=== PATIENT | female | born 1975 | race Two or more races ===

== ENCOUNTER 2016-12-19 21:19 | Emergency (ER) | payer OTHER ==
[2016-12-19] MEDS ORDERED: Acetaminophen TAB* 325 MG PO ONE (22:00)
--- NOTE | 2016-12-19 22:45 | RAD ---
INDICATION: Mid posterior RIGHT calf pain since Saturday. COMPARISON: No relevant prior exams available on the [facility] [place] PACS for comparison. TECHNIQUE: Chung scale, color Doppler, and spectral analysis of the deep veins of the RIGHT lower extremity. Vessel compression, phasicity, and augmentation assessed. REPORT: The RIGHT common femoral, great saphenous, profunda femoral, femoral, popliteal, peroneal, and one of the posterior tibial veins are patent. The remaining posterior tibial vein is remarkable for occlusive thrombosis. Patency of the LEFT common femoral vein documented. IMPRESSION: 1. Negative for RIGHT lower extremity femoral or popliteal vein thrombosis. 2. Occlusive infrageniculate RIGHT lower extremity deep venous thrombosis involving one of the paired posterior tibial veins.
--- NOTE | 2016-12-19 23:51 | ED ---
Lower Extremity - HPI Summary HPI Summary: Pt here w/ Rt calf pain x 2 days. Feels like she's about to get a "Will Horse " but it never happens. Worse w/ flexion/extension of ankle on the side. Better w/ elevation. Has not tried anything yet for pain. Denies injury here or to leg in general - no pain in joints. Denies fever, chills, N/V/D, chest pain, SOB, back pain, hemoptysis. Smokes. Fam h/o clotting issues - mom takes daily ASA to prevent future issues. This pt takes aleve for dysmenorrhea but otherwise is not aware of clotting d/o and not taking prophylactic medication at this time. Denies hormone use, h/o cancer, h/o clot, recent travel/trauma. - History of Current Complaint Chief Complaint: EDExtremityLower Stated Complaint: RIGHT LEG PAIN Time Seen by Provider: 12/19/16 21:48 Hx Obtained From: Patient Pain Intensity: 5 - Allergies/Home Medications Allergies/Adverse Reactions: Allergies Allergy/AdvReac Type Severity Reaction Status Date / Time Penicillins [PCN] Allergy Anaphylatic Verified 12/19/16 21:24 Shock PMH/Surg Hx/FS Hx/Imm Hx Previously Healthy: Yes Endocrine/Hematology History: Denies: Hx Anticoagulant Therapy, Hx Blood Disorders, Hx Coagulopothy Cardiovascular History: Denies: Hx Deep Vein Thrombosis Infectious Disease History: No Infectious Disease History: Denies: Traveled Outside the [place] in Last 30 Days - Family History Known Family History: Positive: Other - coagulopathy - Social History Occupation: Employed Full-time - [employer] Lives: With Family Alcohol Use: Occasionally Hx Substance Use: No Substance Use Type: Reports: None Hx Tobacco Use: Yes Smoking Status (MU): Current Every Day Smoker Review of Systems Constitutional: Negative Negative: Fever, Chills, Fatigue Cardiovascular: Negative Negative: Palpitations, Chest Pain Respiratory: Negative Negative: Shortness Of Breath, Cough Positive: no symptoms reported Musculoskeletal: Other - see HPI Skin: Negative Negative: Rash, Bruising Neurological: Negative Negative: Weakness, Paresthesia, Numbness Psychological: Normal All Other Systems Reviewed And Are Negative: Yes Physical Exam Triage Information Reviewed: Yes Vital Signs On Initial Exam: Initial Vitals Temp Pulse Resp BP Pulse Ox 97.8 F 82 18 130/81 98 12/19/16 21:23 12/19/16 21:23 12/19/16 21:23 12/19/16 21:23 12/19/16 21:23 Vital Signs Reviewed: Yes Appearance: Positive: Well-Appearing, No Pain Distress, Well-Nourished Skin: Positive: Warm, Dry - no erythema, no ecchymosis, no vesicles over affected area Head/Face: Positive: Normal Head/Face Inspection Eyes: Positive: Normal, EOMI ENT: Positive: Hearing grossly normal Respiratory/Lung Sounds: Positive: Breath Sounds Present Cardiovascular: Positive: Pulses are Symmetrical in both Upper and Lower Extremities. Negative: Leg Edema Left, Leg Edema Right - + Atul's Musculoskeletal: Positive: Strength/ROM Intact - Rt calf pain worse w/ ankle dorsiflexion/plantar flexion Neurological: Positive: Normal, Sensory/Motor Intact, Alert, Oriented to Person Place, Time, CN Intact II-III Psychiatric: Positive: Normal Diagnostics - Vital Signs Vital Signs Temp Pulse Resp BP Pulse Ox 12/19/16 21:23 97.8 F 82 18 130/81 98 - Laboratory Lab Statement: Any lab studies that have been ordered have been reviewed, and results considered in the medical decision making process. Lower Extremity Course/Dx - Diagnoses Provider Diagnoses: Right leg DVT Discharge - Discharge Plan Condition: Stable Disposition: HOME Patient Education Materials: Deep Venous Thrombosis (ED), Safe Use of Anticoagulants (ED) Referrals: [facility] REFERRAL [Outside] Additional Instructions: You have a clot on your right calf region - this is called a deep vein thrombosis or "DVT". It is advised that you take your blood thinning medications as directed and follow-up with a PCP in 1-2 weeks for recheck. Call tomorrow to re-establish with your PCP. If he/she is not taking new patients, please call referral line to establish with a new PCP. For pain control, you may try rest, heat, and acetaminophen. Do NOT take any NSAID's (ie. ibuprofen, advil, aleve, naproxen, aspirin) while taking blood thinning medication. Your PCP will let you know when it is safe to stop the medication and when you may return to NSAID use. *If you develop excessive bruising or abnormal bleeding while taking this medication, return to the ED
[2016-12-20 00:04] LABS: BUN/Creatinine Ratio 14.9 (8-20); Calcium 8.9 mg/dL (8.6-10.3); EGFR African American 110.2 (>60); EGFR Non-African American 85.7 (>60); Potassium 3.6 mmol/L (3.5-5.0)
[2016-12-20 00:08] LABS: Add Diff/Slide Review? Slide Review Added; Comments Flag Yes; Hematocrit 38 % (35-47); Hemoglobin 12.7 g/dl (12.0-16.0); Mean Corpuscular HGB Conc 34 g/dl (31-36); Mean Corpuscular Hemoglobin 31 pg (27-31); Mean Corpuscular Volume 92 fL (80-97); Red Blood Count 4.08 10^6/ul (4.0-5.4); Red Cell Distribution Width 14 % (10.5-15); White Blood Count 8.8 10^3/ul (3.5-10.8)
[2016-12-20 01:21] LABS: Platelet Count, Citrated 175 10^3/ul (150-450)
[2016-12-20] MEDS ORDERED: Apixaban* 5 MG TAB PO ONE (02:21)
[2016-12-20 03:12] VITALS: BP 111/60
== END 2016-12-20 03:10 | disposition home or self-care (01) ==
LOC: ED 21:19
DX: I82.4Z1 Acute embolism and thrombosis of unspecified deep veins of right distal lower extremity (principal); F17.210 Nicotine dependence, cigarettes, uncomplicated
CPT/HCPCS: 36415; 80048; 85025; 85049; 85610; 99283; A9270-GY

== ENCOUNTER 2018-03-17 10:14 | Emergency (ER) | payer BC ==
--- NOTE | 2018-03-17 10:36 | ED ---
Lower Extremity - HPI Summary HPI Summary: This pt is a 43 y/o female presenting to [facility] c/o left calf pain x1 week. Pt reports she has a hx of DVT last year for which she had to take anticoagulants. She states she was on anticoagulants for about 4 months. She notes that she began to have sree horse on her left calf on 03/09/18. Pt reports her pain decreased and almost totally resolved until 3 days ago. She notes her pain on her left calf is similar to when she had a DVT. Denies chest pain, SOB, cough, fever, chills. Denies long distance travel or car rides. Pt has been taking aspirin for the pain without relief. Pt still has menstrual cycles. - History of Current Complaint Chief Complaint: EDExtremityLower Stated Complaint: LT LEG PAIN Time Seen by Provider: 03/17/18 10:23 Hx Obtained From: Patient Mechanism Of Injury: Other - no trauma Onset of Pain: Days Onset/Duration: Still Present Severity Currently: Severe Pain Intensity: 8 Pain Scale Used: 0-10 Numeric Timing: Lasting Days Location: Is Discrete @ - left calf Associated Signs And Symptoms: Negative: Fever, Other - chest pain, SOB, cough Aggravating Factor(s): Nothing Alleviating Factor(s): Nothing Able to Bear Weight: Yes Related History: Other - similar pain to past DVT - Allergies/Home Medications Allergies/Adverse Reactions: Allergies Allergy/AdvReac Type Severity Reaction Status Date / Time ampicillin Allergy Swelling Verified 03/17/18 10:21 Of Face,Lips,& Throat Penicillins Allergy Swelling Verified 03/17/18 10:21 Of Face,Lips,& Throat PMH/Surg Hx/FS Hx/Imm Hx Endocrine/Hematology History: Denies: Hx Anticoagulant Therapy, Hx Blood Disorders, Hx Diabetes Cardiovascular History: Reports: Hx Deep Vein Thrombosis Denies: Hx Hypertension - Cancer History Hx Chemotherapy: No Hx Radiation Therapy: No Infectious Disease History: No Infectious Disease History: Denies: Traveled Outside the [place] in Last 30 Days - Family History Known Family History: Positive: Other - coagulopathy - Social History Alcohol Use: Occasionally Hx Substance Use: No Substance Use Type: Reports: None Hx Tobacco Use: Yes Smoking Status (MU): Current Every Day Smoker Review of Systems Negative: Fever, Chills Negative: Chest Pain Negative: Shortness Of Breath, Cough Musculoskeletal: Other - left calf pain All Other Systems Reviewed And Are Negative: Yes Physical Exam - Summary Physical Exam Summary: VITAL SIGNS: Reviewed. GENERAL: Patient is a well-developed and nourished female who is lying comfortable in the stretcher. Patient is not in any acute respiratory distress. HEAD AND FACE: No signs of trauma. No ecchymosis, hematomas or skull depressions. No sinus tenderness. EYES: PERRLA, EOMI x 2, No injected conjunctiva, no nystagmus. EARS: Hearing grossly intact. Ear canals and tympanic membranes are within normal limits. MOUTH: Oropharynx within normal limits. NECK: Supple, trachea is midline, no adenopathy, no JVD, no carotid bruit, no c- spine tenderness, neck with full ROM. CHEST: Symmetric, no tenderness at palpation LUNGS: Clear to auscultation bilaterally. No wheezing or crackles. CVS: Regular rate and rhythm, S1 and S2 present, no murmurs or gallops appreciated. ABDOMEN: Soft, non-tender. No signs of distention. No rebound, no guarding, and no masses palpated. Bowel sounds are normal. EXTREMITIES: FROM in all major joints. Positive left calf tenderness. Positive García sign. NEURO: Alert and oriented x 3. No acute neurological deficits. Speech is normal and follows commands. SKIN: Dry and warm Triage Information Reviewed: Yes Vital Signs On Initial Exam: Initial Vitals Temp Pulse Resp BP Pulse Ox 97.4 F 83 16 130/63 98 03/17/18 10:15 03/17/18 10:15 03/17/18 10:15 03/17/18 10:15 03/17/18 10:15 Vital Signs Reviewed: Yes Diagnostics - Vital Signs Vital Signs Temp Pulse Resp BP Pulse Ox 03/17/18 10:15 97.4 F 83 16 130/63 98 - Laboratory Result Diagrams: 03/17/18 10:39 03/17/18 10:39 Lab Statement: Any lab studies that have been ordered have been reviewed, and results considered in the medical decision making process. - Additional Comments Diagnostic Additional Comments: Venous Doppler Study, Left Lower Extremity (as read by radiologist) IMPRESSION: 1. Deep venous thrombosis in one posterior tibial and one anterior tibial vein. 2. Popliteal fossa cyst. Dr. Tolbert has reviewed this report. Re-Evaluation - Re-Evaluation First Eval Re-Evaluation Time: 12:33 Comment: Reviewed venous doppler study results with the pt. Lower Extremity Course/Dx - Course Assessment/Plan: This patient is a 43-year-old female who presents to the emergency department with a chief complaint of having left lower extremity pain. Patient has past medical history for a DVT. Blood tests without any significant abnormality except for glucose of 112. Left lower extremity ultrasound impression: Deep venous compresses in posterior tibial and on anterior tibial veins. Popliteal fossa cyst. Because of the positive findings of a DVT the patient is to be placed on blood thinners. However the patient reports that she has heavy menstrual cycles when she has the full dosage of 10 mg twice a day. Therefore, I will give patient a prescription for Eliquis 5 mg twice a day and a follow-up with her primary care physician in the next 2 days. Patient agrees with the plan. The patient is discharged home with follow-up with PCP. I discussed all the findings and test results with the patient. Patient was instructed to return to the emergency room immediately if any of the symptoms return or worsens. Plan of care was discussed with the patient and understands and agrees. All questions were answered at patient satisfaction. There were no further complaints or concerns. Lung exam before discharge: CTA B /L. Good air exchange. No wheezing or crackles heard. CVS: S1 and S2 present. No murmurs appreciated. Patient is alert and oriented x 3. Patient is hemodynamically stable. Patient will be discharged home with follow up from PCP in the next 2-3 days. - Diagnoses Differential Diagnosis/HQI/PQRI: Positive: Bursitis, Cellulitis, Contusion, Sprain, Strain Provider Diagnoses: DVT (deep venous thrombosis) Discharge - Sign-Out/Discharge Documenting (check all that apply): Patient Departure - Discharge home - Discharge Plan Condition: Improved Disposition: HOME Prescriptions: Apixaban* [Eliquis*] 5 mg PO BID #40 tab Patient Education Materials: Deep Vein Thrombosis (ED) Referrals: Jahaira Chavis MD [Primary Care Provider] - Additional Instructions: FOLLOW UP WITH YOUR PRIMARY CARE PROVIDER WITHIN ONE WEEK FOR HIGH BLOOD PRESSURE NOTED TODAY. RETURN TO THE ED FOR ANY NEW OR WORSENING SYMPTOMS. - Billing Disposition and Condition Condition: IMPROVED Disposition: Home - Attestation Statements Document Initiated by Oumaribyoselin: Yes Documenting Scribe: Judy Yang Provider For Whom David is Documenting (Include Credential): Stef Tolbert MD Scribe Attestation: I, Judy Yang, scribed for Stef Tolbert MD on 03/19/18 at 0742. Scribe Documentation Reviewed: Yes Provider Attestation: The documentation as recorded by the scribe, Judy Yang accurately reflects the service I personally performed and the decisions made by me, Stef Tolbert MD
--- OUTSIDE RECORDS SUMMARY | 2018-03-17 10:40 | XMS REPORT ---
:1975 External Reference #:[id number] Author Organization [facility] Address [address] [place] [address] Phone [phone] Care Team Providers Name Role Phone Jahaira Abrams Care Team Information Block And Case Maker Unavailable Jahaira Abrams Primary Care Physician Unavailable Payers Type Date Identification Numbers Payment Provider Subscriber Commercial Policy Number: [id number] Out Of Area [facility] Rebekah Cardenas PayID: [id number] [address] [address] [place] [address] Problems Description No Information Family History Date Family Member(s) Problem(s) Comments General No family hx SD. No lung/Breast Ca. No cervical/ovarian/uterin CAMaternal aunt dx'd colon ca age 67.MGF + colon CA. Father age 57 d/t kidney failure. Mother DM,HTN. stroke 2010 - lost peripheral vision L eye, seizures. pacemaker. First Daughter healthy. Second Daughter hearing loss, wears two hearing aides. First Brother healthy. Maternal Grandmother due to Embolism () Social History Type Date Description Comments Education Highest level of education completed is a bachelor's degree Congolese. Marital Status Patient is single Living Situation Lives with daughters, and mother. Occupation [place] Cigarette Use Former Cigarette Smoker quit 1992 ETOH Use Rare Smoking Patient is a current smoker, quit after DVT - smoking smokes every day 1 pack per week quit when she was , Exercise Type/Frequency Exercises regularly Current Seat Belt/Car Seat Always uses a seat belt Sexual Hx Not currently in a relationship. Allergies, Adverse Reactions, Alerts Date Description Reaction Status Severity Comments 07/26/2009 Penicillin active 07/26/2009 Ampicillin active Medications Medication Date Status Form Strength Qnty SIG Indications Ordering Provider Compression 01/02/ Active OnePair knee high, I82.401 [employer] 2017 14mm dx: Diane, i82.401 [facility] Eliquis 12/20/ Hx Tablets 5mg 60tabs 1 tablet I82.401 [facility] 2016 - by mouth Diane, 03/26/ twice a [facility] 2017 day No Active 08/01/ Hx Unknown Medications 2015 - 2016 No Active 07/11/ Hx Unknown Medications 2015 - 2015 Azithromycin 07/11/ Hx Tablets 250mg 12tabs take 2 J06.9 [facility] 2015 - tablets by Diane, 08/01/ mouth x 3d [facility] 2015 then take 1 tablet daily for next 6 days Cheratussin ac 07/11/ Hx Syrup 100-10mg/ 4oz 1-2 J06.9 [facility] 2015 - 5ML teaspoons Diane, 08/01/ every 4-6 [facility] 2015 hour as needed for cough Note No Work 07/11/ Hx Rebekah J06.9 [facility] 2015 - was seen Diane 08/01/ by [facility] 2015 today has not been able to work since and may not return to work until Medrol (Jimmy) 01/12/ Hx Tablets 4mg 1tabs as 842.00 Jesus 2015 - directed Zachary 07/11/ M.DVishal 2015 Azithromycin 10/27/ Hx Tablets 250mg 6tabs 2 by mouth 486 Al[facility]rac[facility] 2015 - every day Becca, 11/01/ x1 then 1 Afnp-C 2015 by mouth every day x 4 more days Cheratussin ac 10/27/ Hx Syrup 100-10mg/ 4oz 1-2 465.9 Altagracia 2014 - 5ML teaspoons [facility], 11/06/ every 4-6 Afnp-C 2014 hour as needed for cough Hydrocodone/Wayne 09/22/ Hx Tablets 5-325mg 40tabs 1 po qid Jahaira Nelson taminophen 2013 - pudt take Palmira, 10/27/ care to M.DVishal 2015 keep bowels moving daily ok to take ibuprofen with this, not tylenol/ac etaminophe n No Active 09/18/ Hx Unknown Medications 2013 - 2013 Vitamin D 09/18/ Hx Capsules [id number] 10caps 1 po Jahaira L. 2014 - weekly x Palmira, . M.D. 2016 Metronidazole 06/15/ Hx Tablets 500mg 20tabs 1po bid x 616.10 Jahaira Leslie 2012 - 10 days Palmira, M.D. 2013 Vitamin D 06/05/ Hx Capsules 77837Axid 10caps 1 po Jahaira Nelson 2012 - weekly x Palmira, . M.D. 2013 No Active 05/04/ Hx Unknown Medications 2012 - 2012 Doxycycline 10/06/ Hx Capsules 100mg 20caps 1 po bid Aleksander Eddy 2010 - Mid, M.D. 2012 Immunizations CPT Code Status Date Vaccine Lot # [id number] Given 05/04/2013 Tdap Tetanus, W Pertussis [id number] Vital Signs Date Vital Result Comment 03/10/2018 BP Systolic 132 mmHg BP Diastolic 86 mmHg Heart Rate 72 /min Body Temperature 98.2 F Respiratory Rate 16 /min Height 64 inches 5'4" measured Weight 213.50 lb BMI (Body Mass Index) 36.6 kg/m2 04/26/2017 BP Systolic 120 mmHg BP Diastolic 80 mmHg Heart Rate 72 /min Body Temperature 98.0 F Respiratory Rate 18 /min Height 64 inches 5'4" measured Weight 204.00 lb BMI (Body Mass Index) 35.0 kg/m2 01/23/2017 BP Systolic 118 mmHg BP Diastolic 80 mmHg Heart Rate 68 /min Body Temperature 98.6 F Height 64 inches 5'4" measured Weight 215.00 lb BMI (Body Mass Index) 36.9 kg/m2 12/24/2016 BP Systolic 116 mmHg BP Diastolic 60 mmHg Heart Rate 78 /min Body Temperature 98.4 F Respiratory Rate 16 /min Height 64 inches 5'4" measured Weight 223.00 lb BMI (Body Mass Index) 38.3 kg/m2 08/01/2015 BP Systolic 118 mmHg BP Diastolic 64 mmHg Heart Rate 72 /min Body Temperature 98.1 F Respiratory Rate 16 /min Height 64 inches 5'4" measured Weight 209.38 lb BMI (Body Mass Index) 35.9 kg/m2 07/11/2015 BP Systolic 120 mmHg BP Diastolic 80 mmHg Heart Rate 80 /min Body Temperature 98.1 F Respiratory Rate 18 /min Height 64 inches 5'4" measured Weight 206.00 lb BMI (Body Mass Index) 35.4 kg/m2 01/12/2015 BP Systolic 112 mmHg BP Diastolic 70 mmHg Heart Rate 72 /min Body Temperature 98.2 F Respiratory Rate 16 /min Height 64 inches 5'4" measured Weight 193.00 lb BMI (Body Mass Index) 33.1 kg/m2 10/27/2014 BP Systolic 120 mmHg BP Diastolic 70 mmHg Heart Rate 72 /min Body Temperature 98.7 F Respiratory Rate 18 /min Height 64 inches 5'4" measured Weight 201.00 lb BMI (Body Mass Index) 34.5 kg/m2 09/18/2013 BP Systolic 110 mmHg BP Diastolic 72 mmHg Heart Rate 78 /min Body Temperature 97.2 F Height 64 inches 5'4" measured Weight 223.38 lb BMI (Body Mass Index) 38.3 kg/m2 06/15/2013 BP Systolic 122 mmHg BP Diastolic 74 mmHg Heart Rate 72 /min Body Temperature 98.0 F Respiratory Rate 16 /min Height 64 inches 5'4" measured Weight 221.12 lb BMI (Body Mass Index) 38.0 kg/m2 05/04/2013 BP Systolic 118 mmHg BP Diastolic 74 mmHg Heart Rate 78 /min Body Temperature 97.9 F Respiratory Rate 16 /min Height 64 inches 5'4" measured Weight 223.00 lb BMI (Body Mass Index) 38.3 kg/m2 Right Visual Acuity Distance 20/30 Left Visual Acuity Distance 20/25 10/06/2010 BP Systolic 118 mmHg BP Diastolic 60 mmHg Heart Rate 72 /min Body Temperature 98.3 F Height 64 inches 5'4" Weight 207.00 lb BMI (Body Mass Index) 35.5 kg/m2 08/23/2009 BP Systolic 98 mmHg BP Diastolic 60 mmHg Heart Rate 78 /min Body Temperature 97.4 F Weight 204.00 lb 08/08/2009 BP Systolic 110 mmHg BP Diastolic 80 mmHg Heart Rate 64 /min Body Temperature 98.3 F Weight 211.00 lb 07/26/2009 BP Systolic 104 mmHg BP Diastolic 62 mmHg Heart Rate 76 /min Body Temperature 99.4 F Height 64 inches 5'4" Weight 205.00 lb BMI (Body Mass Index) 35.2 kg/m2 Results Test Date Test Result H/L Range Note Laboratory test finding 09/18/2013 Glucose, Serum 80 mg/dL 70-105 (Fma/CMC/CTX) Hemoglobin A1c (Fma/CMC,CX) 6.1 % High 4.1-5.7 Laboratory test finding 09/18/2013 Vitamin D25 19 Low 30-100 1 Comprehensive Metabolic Prof 06/01/2013 Albumin 4.5 g/dL 3.8-5.5 Alk. Phos. 46 U/L 30-110 Alt (SGPT) 19 U/L 7-35 Ast (Sgot) 15 U/L 5-34 BUN 15 mg/dL 6-26 Calcium 9.8 mg/dL 8.6-10.2 Chloride 105 mEq/L 94-112 Creatinine 0.9 mg/dL 0.6-1.4 Carbon Dioxide 23 mEq/L 21-32 Glucose 119 mg/dL High 70-105 2 Sodium 144 mEq/L 134-149 Total Bilirubin 0.5 mg/dL 0.2-1.3 Total Protein 6.9 g/dL 6.3-8.1 Potassium 4.6 mEq/L 3.6-5.5 Globulin 2.4 g/dL 2.0-4.8 A/G Ratio 1.9 Calc 0.6-2.3 BUN/Creat Ratio 16.3 Calc 8.0-36.0 Lipid Profile 06/01/2013 Cholesterol 198 mg/dL 120-200 HDL 52 mg/dL 30-85 Triglycerides 70 mg/dL 30-200 HDL Risk Factor 3.8 CALC 0.0-4.4 LDL (Calculated) 132 CALC High 0-129 VLDL (Calculated) 14 mg/dL 0-50 Laboratory test finding 06/01/2013 TSH 4.09 mIU/L 0.50-6.00 Ua - Micro (Fma) 06/01/2013 Appearance cloudy Color yellow Glucose neg Bilirubin neg Ketones neg SP Grav >1.030 Blood neg PH 5.5 Protein neg Urobil 0.2 Nitrite neg Leukocytes (Fma/CMC/Centrex) large Hyaline - /Lpf Granular - /Lpf WBC (Fma,Centrex) 20-30 RBC 0-4 Mucus - /Lpf Epith few /Lpf Bacteria 1+ /Hpf Amorphous - /Lpf Crystals, Fluid (Fma/CMC/CTX) - Z#Comments - Laboratory test finding 06/01/2013 Vitamin D, 25 Oh 6.8 ng/mL Low 30.0- 100.0 3 Urine Culture No growth. Laboratory test finding 05/05/2013 Thin Prep W/HPV SEE NOTE 4 Laboratory test finding 08/23/2009 Thin Prep SEE NOTE 5 W/HPV(Lsil/GENIA/Asc) CBC (Fma) 08/23/2009 WBC 5.2 3.6-9.6 RBC 4.02 3.90-5.70 Hemoglobin (Fma/CMC/CTX) 11.5 g/dL Low 12.1 - 17.2 Hematocrit (Fma/CMC/CTX) 37.3 % 36.1 - 50.3 Mean Corpuscular Vol 92.8 82.2-97.4 Mean Corpuscular Hemaglobin 28.6 27.6-33.3 Mean Corpuscular Hemo Concen 30.8 Low 33.0-36.0 Platelets 266 10^3/ul 150-400 Lymph% 26.7 20.5-51.1 Mixed% 15.7 Neutrophils % 57.6 RDW 13.7 11.6-13.7 Mean Platelet Volume 9.4 7.4-10.4 Comprehensive Metabolic Prof 08/03/2009 Albumin 4.2 g/dL 3.8-5.5 Alk. Phos. 44 U/L 30-110 Alt (SGPT) 15 U/L 7-35 Ast (Sgot) 19 U/L 5-34 BUN 17 mg/dL 6-26 Calcium 9.9 mg/dL 8.6-10.2 Chloride 104 mEq/L 94-112 Creatinine 1.0 mg/dL 0.6-1.4 Carbon Dioxide 25 mEq/L 21-32 Glucose 92 mg/dL 70-105 Sodium 141 mEq/L 134-149 Total Bilirubin 0.4 mg/dL 0.2-1.3 Total Protein 6.9 g/dL 6.3-8.1 Potassium 4.2 mEq/L 3.6-5.5 Globulin 2.7 g/dL 2.0-4.8 A/G Ratio 1.6 Calc 0.6-2.2 BUN/Creat Ratio 17.7 Calc 8.0-36.0 Lipid Profile 08/03/2009 Cholesterol 171 mg/dL 120-200 HDL 53 mg/dL 30-85 Triglycerides 48 mg/dL 30-200 HDL Risk Factor 3.2 CALC Low 4.2-7.0 LDL (Calculated) 108 CALC 0-129 VLDL (Calculated) 10 mg/dL 0-50 Laboratory test finding 08/03/2009 TSH 2.02 mIU/L 0.50-6.00 CBC (Fma) 08/03/2009 WBC 5.4 3.6-9.6 RBC 4.02 3.90-5.70 Hemoglobin (Fma/CMC/CTX) 11.6 g/dL Low 12.1 - 17.2 Hematocrit (Fma/CMC/CTX) 37.3 % 36.1 - 50.3 Mean Corpuscular Vol 92.8 82.2-97.4 Mean Corpuscular Hemaglobin 28.9 27.6-33.3 Mean Corpuscular Hemo Concen 31.1 Low 33.0-36.0 Platelets 120 10^3/ul Low 150-400 6 Lymph% 33.3 20.5-51.1 Mixed% 10.4 Neutrophils % 56.3 RDW 13.9 High 11.6-13.7 Mean Platelet Volume ----- Low 7.4-10.4 Laboratory test finding 08/03/2009 Vitamin D, 25 Oh 13.8 ng/mL Low 32.0- 100.0 7 1 FASTING 2 result mario'd 3 Vitamin D deficiency has been defined by the [place] [employer] and an Endocrine Society practice guideline as a level of serum 25-OH vitamin D less than 20 ng/mL (1,2). The Endocrine Society went on to further define vitamin D insufficiency as a level between 21 and 29 ng/mL (2). 1. IOM ([place] [employer]). 2010. Dietary reference intakes for calcium and D. [place]: The National Academies Press. 2. Miryam MF, Jadon NC, [place] STERLING, et al. Evaluation, treatment, and prevention of vitamin D deficiency: an Endocrine Society clinical practice guideline. JCEM. 2010; 96(7):1911-30. 4 [employer] DEPARTMENT OF PATHOLOGY or Extension 1906 COMBINED HPV / COOKER TENDER CYTOLOGY REPORT Patient: REBEKAH CARDENAS : 1975 AGE: 38 Y SEX: F Acct: [id number] Procedure Date: 05/04/2013 Date Received: 05/06/2013 Requesting Provider: JAHAIRA ABRAMS MD Location: [facility] [place] [id number] Requisition #: [id number] CYTOLOGIC INTERPRETATION: SPECIMEN ADEQUACY SATISFACTORY FOR EVALUATION, ENDOCERVICAL TRANSFORMATION ZONE COMPONENT PRESENT GENERAL CATEGORIZATION NEGATIVE FOR INTRAEPITHELIAL LESIONS OR MALIGNANCY INTERPRETATION/ RESULT TRICHOMONAS VAGINALIS, RECOMMENDATIONS Repeat pap after treatment of infection. See Related Reference Test Result below. Refer to the corresponding web sites for 2012 updated general recommendation guidelines of U.S. preventive service task force for cervical cancer screening, and www.asccp.org//klvlzcfbk7279. COMMENTS Thin Prep Pap tests are examined with an FDA approved location-guidance system. RELATED REFERENCE TEST RESULT: HPV: "HIGH RISK" Source: CERVICAL Result: NEGATIVE Test Method: HC2 Performing Location: METHODOLOGY: HPV high risk is performed with the FDA approved Digene HC2 method whenever the specimen is cellular enough and the quantity of sample remaining in the vial after Thin Prep PAP slide preparation equals or greater than 4 ml. In cases of smaller sample (0.5 to 3.9 ml) the HPV high risk testing will be performed with Low Volume rfx. ( RN) Digene Hybrid Capture (HC2). FDA approved and detects 13 "high risk" HPV types (16/18/31/33/35/39/45/51/52/56/58/59/68) without differentiation. (02 BN) Low Volume rfx detects fourteen "high risk" HPV types (16/18/31/33/35/39/45/51/52/56/58/59/66/68) without differentiation. PATIENT DATA: SPECIMEN SUBMITTED: * * (HPVR) THIN PREP W/HPV * * CERVICAL/ENDOCERVICAL RELEVANT HISTORY: LMP: 04/12/2013 Prev.normal: 2009 Comment: TUBAL 2004 ADDITIONAL COPIES SENT TO: Screened/Rescreened Electronically Signed Sign Out Date/Time: by: by: [facility] CJS3 ABILIO JIMENEZ(ASCP) 05/11/2013 10:16 Note: The Pap smear is a screening test designed to aid in the detection of premalignant and malignant conditions of the uterine cervix. It is not a diagnostic procedure and should not be used as the sole means of detecting cervical cancer. Both false-positive and false-negative reports do occur. 00 UA Pap Smear performed at [facility] [place]: [place], [address] [place] [id number] 01 associate faculty [facility] Dir: Ronny Piña MD, [address] [place] [phone] 02 [facility] [place] Dir: Edmundo Mendez MD, [address] [place] [phone] For inquiries regarding HPV test results, the physician may contact [facility]: [phone] . 5 [employer] DEPARTMENT OF PATHOLOGY or Extension 1806 COOKER TENDER CYTOLOGY REPORT PATIENT: REBEKAH CARDENAS : 1975 AGE: 34 Y SEX: F ACCT: [id number] PROCEDURE DATE: 08/23/2009 DATE RECEIVED: 08/24/2009 REQUESTING PHYSICIAN: JAHAIRA ABRAMS MD LOCATION: [facility] [place] Case No. [id number] PATIENT DATA: [id number] SPECIMEN SUBMITTED: * * (HPVII) THIN PREP W/HPV (LSIL/ASC/GENIA) * * ENDOCERVICAL RELEVANT HISTORY: LMP: 07/08/2009 : 2 Para: 2 Contraceptive: NONE Prev.normal: FEW YEARS AGO SPECIMEN ADEQUACY SATISFACTORY FOR EVALUATION, ENDOCERVICAL TRANSFORMATION ZONE COMPONENT PRESENT GENERAL CATEGORIZATION NEGATIVE FOR INTRAEPITHELIAL LESIONS OR MALIGNANCY INTERPRETATION/ RESULT HYPERKERATOSIS. REACTIVE CELLULAR CHANGES. RECOMMENDATIONS Follow-up as clinically indicated. ADDITIONAL COPIES SENT TO: Screened/Rescreened by: Electronically Signed by: VICK CARABALLO MD PATHOLOGIST Signed Date/Time 08/25/2009 13:08 Thin Prep Pap tests are examined with an FDA-approved location-guidance system (90675). Performed @ [facility] [address] [place] [address] "" 6 RESULT MARIO'D 7 Recent studies consider the lower limit of 32.0 ng/mL to be a threshold for optimal health. Gael CELESTIN. J Nutr. 2004;135(2):317-22. Procedures Date CPT Code Description Status 08/01/2015 81154 Remove Impacted Cerumen Completed 05/22/2013 Mammogram Completed 05/04/2013 59022 Vision Test- screening test of visual acuity, Completed quantitative, bila Encounters Type Date Location Provider CPT E/M Dx Office Visit 04/26/2017 10:30a Main Office JANIA Bach 65597 I82.401 Office Visit 01/23/2017 2:45p Main Office JANIA Bach 27839 I82.401 Office Visit 12/24/2016 4:00p Main Office JANIA Bach 32411 I82.401 Office Visit 08/01/2015 3:30p Main Office JANIA Bach 36767 H91.93 H61.23 Office Visit 07/11/2015 6:15p Main Office JANIA Bach 70385 J06.9 Office Visit 01/12/2015 3:40p Main Office Jesus Sharma M.D. 03644 842.00 Office Visit 10/27/2014 6:00p Main Office Altagracia Hudson, Afnp-C 80241 465.9 486 Office Visit 09/18/2013 11:20a [facility] Office Jahaira Abrams M.D. 59762 218.9 790.21 268.9 Office Visit 06/15/2013 7:50p Main Office Jahaira Abrams M.D. 23805 616.10 218.9 790.21 268.9 Office Visit 05/04/2013 7:50p Main Office Jahaira Abrams M.D. 89634 V70.0 v06.5 V72.31 278.00 709.9 268.9 V72.0 791.7 Office Visit 10/06/2010 1:20p Main Office Aleksander Larsen M.D. 52823 709.9 Office Visit 08/23/2009 9:00a Main Office Jahaira Abrams M.D. 49795 V72.31 218.9 268.9 287.5 465.9 Office Visit 08/08/2009 5:40p Main Office Jahaira Abrams M.D. 59777 380.4 Office Visit 07/26/2009 6:00p Main Office Jahaira Abrams M.D. 18234 V70.0 278.00 389.9 308.3 Plan of Care 03/10/2018 - Allie Lee, NPM25.552 Pain in left hipComments:will get an x ray to determine if arthritic changes are the cause of the painstart PT as this will help cure the problem at hand and prevent recurrence.Z12.31 Encntr screen mammogram for malignant neoplasm of breastComments:A mammogram has been ordered.M79.662 Pain in left lower legComments:[email or web address]/dp/ [email or web address] /ref=twister_[email or web address] please wear compression stockings - these are pretty affordable and gives you a few pairs so you can wear them while you are on your feetat work if pain persists, worsens, you have swelling, redness, shortness of breath or chest pain, please contact office or seek medical attention.AllComments:~B_~U_Medication Management~b_~u_ Patient Understands medications he 's taking? Yes No Are there Barriers to Adherence? Yes No Has the patient been asked about herbal supplements and therapies, and OTC meds? Yes No ~B_~U_Care Plan~b_~u_1. Patient has been queried about patient's goals/preferences and functional/lifestyle goals at relevant visits. If relevant, describe: na2. Treatment goals as explained to the patient: above3. Are there barriers to meeting treatment goals? Yes No If Yes, please describe:4. Self-Management goals as described to the patient:Yes NoAs always, we strongly encourage a healthy diet and making physical activity a part of your every day life. If you have questions about how or where to start, please contact the office.Follow up:Please schedule a full preventative well visit at your earliest convenience
[2018-03-17 11:01] LABS: INR 0.93 (0.77-1.02)
[2018-03-17 11:05] LABS: EGFR Non-African American 83.6 (>60)
--- NOTE | 2018-03-17 12:08 | RAD ---
INDICATION: Left calf pain. COMPARISON: There are no relevant prior studies available for comparison. TECHNIQUE: Multiple real-time, color flow and Doppler tracings of the left lower extremity were obtained. FINDINGS: The common femoral, femoral, profunda femoral and popliteal veins all demonstrate normal compressibility, augmentation with compression and phasic response with respiration. There is occlusion of one of the posterior tibial veins. There is also occlusion of one anterior tibial vein. The peroneal veins are not visualized. There is a cyst in the popliteal fossa measuring 4.4 x 1.9 x 4.0 cm. IMPRESSION: 1. DEEP VENOUS THROMBOSIS IN ONE POSTERIOR TIBIAL AND ONE ANTERIOR TIBIAL VEIN. 2. POPLITEAL FOSSA CYST.
[2018-03-17 12:25] LABS: ABS Basophils 0 10^3/ul (0-0.2); ABS Eosinophils 0.1 10^3/ul (0-0.6); ABS Lymphocytes 1.6 10^3/ul (1.0-4.8); ABS Monocytes 0.4 10^3/ul (0-0.8); ABS Neutrophils 3.5 10^3/ul (1.5-7.7); ABS Nucleated RBC 0 10^3/ul; Eosinophil % 1.7 % (0-6); Hematocrit 38 % (35-47); Hemoglobin 12.6 g/dl (12.0-16.0); Lymphocyte % 28.8 % (25-47); Mean Corpuscular HGB Conc 33 g/dl (31-36); Mean Corpuscular Hemoglobin 31 pg (27-31); Mean Corpuscular Volume 92 fL (80-97); Nucleated Red Blood Cells % 0; Red Blood Count 4.13 10^6/ul (4.00-5.40); Red Cell Distribution Width 15 % (10.5-15); White Blood Count 5.7 10^3/ul (3.5-10.8)
[2018-03-17] MEDS ORDERED: Apixaban* 5 MG TAB PO ONE (12:47)
[2018-03-17 13:01] VITALS: BP 113/86
== END 2018-03-17 13:15 | disposition home or self-care (01) ==
LOC: ED 10:14
DX: I82.4Z2 Acute embolism and thrombosis of unspecified deep veins of left distal lower extremity (principal); M79.662 Pain in left lower leg; F17.210 Nicotine dependence, cigarettes, uncomplicated
CPT/HCPCS: 36415; 80053; 85025; 85610; 85730; 99282

== ENCOUNTER 2018-08-21 10:32 | Observation (INO) | payer OTHER ==
[2018-08-21] MEDS ORDERED: Scopolamine 1.5 mg* PATCH ONE (11:37)
[2018-08-21] MEDS ORDERED: Ondansetron INJ* 2 MG/ML VIAL ONE ×2 (11:37→12:47)
[2018-08-21] MEDS ORDERED: Naproxen TAB* 250 MG ONE (11:37)
[2018-08-21] MEDS ORDERED: LORazepam TAB(*) 1 MG ONE (11:37)
[2018-08-21] MEDS ORDERED: oxyCODONE SR TAB(*) 10 MG TAB.SR ONE (11:37)
[2018-08-21] MEDS ORDERED: Clindamycin 900 MG/D5W BAG(*) 900 MG/50 ML BAG IVPB ONE (12:00)
[2018-08-21] MEDS ORDERED: Midazolam* 1 MG/ML 5 ML VIAL (5 MG) ONE (12:45)
[2018-08-21] MEDS ORDERED: fentaNYL* 50 MCG/ML 2 ML VIAL (100 MCG VIAL) ONE ×2 (12:45→15:31)
[2018-08-21] MEDS ORDERED: Lidocaine 1% INJ* 10 MG/ML 30 ML SDV ONE (12:45)
[2018-08-21] MEDS ORDERED: Heparin 2 UNITS/ML IVPREMIX* 2,000 UNIT/1,000 ML BAG IV ONE (12:46)
[2018-08-21] MEDS ORDERED: Iohexol 350 (CONTRAST) 200 ML MDV IV ONE (12:46)
[2018-08-21] MEDS ORDERED: nitroGLYCERIN DRIP* 25,000 MCG/250 ML BTL ONE (12:47)
[2018-08-21] MEDS ORDERED: Ketorolac INJ* 30 MG/ML 1 ML VIAL ONE ×3 (12:47→15:21)
[2018-08-21] MEDS ORDERED: Naloxone* 0.4 MG/ML 1 ML VIAL ONE ×2 (12:47→12:48)
[2018-08-21] MEDS ORDERED: Flumazenil* 0.1 MG/ML 5 ML MDV ONE (12:47)
[2018-08-21] MEDS ORDERED: VERAPAMIL 2.5 MG/ML 2 ML VIAL ** 5 mg/2 ml ONE (12:56)
[2018-08-21] MEDS ORDERED: Heparin(*) 1000 UNIT/ML 10 ML VIAL CATH LAB IV ONE (12:56)
[2018-08-21] MEDS ORDERED: HYDROmorphone PCA* 20 MG/20 ML PCA.SYRING ONE (13:53)
[2018-08-21] MEDS ORDERED: Naloxone* 0.4 MG/ML 1 ML VIAL IV PUSH PRN (15:51)
[2018-08-21] MEDS ORDERED: NS 0.9% 1000 ML** 1,000 ML IV SCH (16:00)
[2018-08-21] MEDS ORDERED: HYDROmorphone PCA* 20 MG/20 ML PCA.SYRING PCA SCH (16:00)
[2018-08-21] MEDS ORDERED: HYDROmorphone INJ1* 1 MG/ML SYRINGE IV ONE (20:04)
--- NOTE | 2018-08-21 20:15 | PN ---
Progress Note - Progress Note Date of Service: 08/21/18 SOAP: Subjective: Patient rates pain as "8". Denies nausea or emesis. Wants to eat. Objective: Selected Entries 08/21/18 08/21/18 08/21/18 18:00 19:00 19:01 Temperature 97.5 F Temperature Temporal Artery Source Scan Pulse Rate 68 Blood Pressure 146/96 (mmHg) Blood Pressure 109 Mean O2 Sat by Pulse 100 Oximetry Patient on Room Yes Air Sleeping in bed, but arousable to voice NAD, AAO x 3 Low abdomen is tender to palpation Uterine fundus readily palpable above umbilicus Small amount of blood <1 cm over arteriotomy, site is soft and nontender 1+ radial pulse Sensation in left hand is intact in distribution of radial, median and ulnar nerves Left hand and finger motor function is grossly intact Wrist brace is correctly in position Assessment: 43 YOF status post Uterine Artery Fibroid Embolization for very large volume fibroid uterus (21 vials of embolic particles were necessary to achieve stasis) . Patient reports 8/10 pain, though is calm and capable of sleep. Plan: 1. Add Dilaudid bolus 0.5 mg once now. 2. Standard post UFE Interventional Radiology pain & nausea regimen. 3. Advance diet as tolerated. 4. Continue IVF NS 0.9% @ 125 mL/hour overnight.
[2018-08-21] MEDS: Ondansetron INJ* 2 MG/ML VIAL IV SCH (20:47)
[2018-08-21] MEDS: NS 0.9% 1000 ML** 1,000 ML IV SCH (20:51)
[2018-08-21] MEDS ORDERED: Enoxaparin(*) 40 MG/0.4 ML SYR SUBCUT SCH (21:00)
[2018-08-21] MEDS: Ketorolac INJ* 15 MG/ML 1 ML VIAL IV PUSH SCH (22:55)
[2018-08-22] MEDS: Ketorolac INJ* 15 MG/ML 1 ML VIAL IV PUSH SCH (03:03)
[2018-08-22] MEDS: Ondansetron INJ* 2 MG/ML VIAL IV SCH (03:05)
--- NOTE | 2018-08-22 03:44 | HP ---
CC: Dr. Jahaira Chavis; Dr. Remy Paiz; Dr. Tc Spence * HISTORY AND PHYSICAL: DATE OF ADMISSION: 08/21/18 PRIMARY CARE PROVIDER: Dr. Jahaira Chavis. GRAVEL MACHINE OPERATOR: Dr. Remy Paiz. INTERVENTIONAL RADIOLOGIST: Dr. Tc Spence. ATTENDING PHYSICIAN: Dr. Cecile Katz * (dictated by Ana Rosa Lockett NP). REASON FOR VISIT: Uterine fibroid embolization. HISTORY OF PRESENT ILLNESS: Ms. Cardenas is a 43-year-old female with past medical history of recurrent DVT, who presents to [facility] today for an elective uterine fibroid embolization with Dr. Spence. The patient reports that she has had fibroids for approximately 10 years and during that time has had significant pain, significant menstrual cramping and bleeding because of the fibroids. 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 The patient elected to go through with uterine fibroid embolization after consulting with Dr. Spence. She does have a history of recurrent DVTs. Most recently, she saw Dr. Loyola on 03/30/18. At that time, he did a hypercoagulable workup. She had been taking Coumadin prior to that visit, though ultimately her hypercoagulability workup came back negative and the patient was subsequently taken off Coumadin. She has not been on any anticoagulation since that time. On my exam, the patient is lying in a stretcher in the PACU. She reports 9/10 pain and is not able to provide much history or subjective information due to pain and sedation. The hospitalist service was asked to evaluate for post UFE admission. PAST MEDICAL HISTORY: 1. Recurrent DVT. 2. Depression. PAST SURGICAL HISTORY: 1. in 2004. HOME MEDICATIONS: None. ALLERGIES: PENICILLIN. FAMILY HISTORY: The patient reports her mother had Alzheimer's, though ultimately at 83 from a cardiac arrest. She reports that her father at the age of 66 during a surgery. SOCIAL HISTORY: The patient denies any alcohol or recreational drug use. She reports smoking approximately 2 packs per week, though hopes to quit while recovering from this procedure. She lives at home with her daughter. The patient's brother, Ricardo, will be her surrogate decision maker in the event she is unable to make her own decisions. REVIEW OF SYSTEMS: An 11-point review of systems was performed and all the pertinent positive and negative findings are in the HPI. All other systems are negative. PHYSICAL EXAMINATION GENERAL: Ms. Cardenas is a well-developed, well-nourished, overweight woman, lying in bed, in no acute distress. She appears her stated age. VITAL SIGNS: Temp 97.5, heart rate 65, respiratory rate 20, oxygen saturation 94 % on room air, blood pressure 132/69. HEENT: Head is atraumatic, normocephalic. Visual omalley are grossly intact. Pupils are equal, round, and reactive to light and accommodation. Extraocular movements intact. Oral mucous membranes are moist and without lesions. NECK: Full range of motion. Trachea midline. RESPIRATORY: Symmetrical chest expansion. No chest wall deformities. Lungs are clear to auscultation throughout. No rhonchi, wheezes, or rales. CARDIOVASCULAR: Regular rate and rhythm. S1, S2 present. No murmurs, rubs, or gallops. ABDOMEN: Soft, tender to palpation postoperatively. EXTREMITIES: Skin warm and smooth bilaterally. No edema. No clubbing or cyanosis. Pedal pulses 2+ bilaterally. NEUROLOGIC: Drowsy, but arousable and oriented x4. Cranial nerves II through XII grossly intact. Moves all extremities. SKIN: The patient has a left radial access site, which is clean, dry, and intact. Her skin is otherwise intact without lesions. DIAGNOSTIC STUDIES/LAB DATA: The patient had a BMP on 08/20/18, which showed sodium 138, potassium 4.3, chloride 109, carbon dioxide 26, BUN 15, creatinine 0.75, glucose 83. ASSESSMENT AND PLAN: Ms. Cardenas is a 43-year-old female with past medical history of recurrent deep venous thrombosis and depression, who presents to [facility] today for an elective uterine fibroid embolization with Dr. Spence. She will be admitted to observation for: 1. Status post uterine fibroid embolization. Management per Dr. Spence. He has ordered the typical post UFE pain medication and antiemetics. We will continue to monitor the patient overnight, but I anticipate she will likely be able to be discharged tomorrow as long as her symptoms are controlled. 2. Recurrent deep venous thrombosis. The patient is currently not on any anticoagulation. She is at extremely high risk for deep venous thrombosis due to her history, so I will place her on Lovenox. This has been cleared with Dr. Spence. 3. Depression. The patient is not currently on any medications and denies any depression at this point. 4. Fluids, electrolytes, and nutrition: IV fluids will be per Dr. Spence. Diet will be regular per Dr. Spence. 5. Code status: The patient will be a full code. 6. DVT prophylaxis: Based on the DVT Risk Assessment, the patient scores a 5 putting her at highest risk. Again, I will place her on subcu Lovenox. TIME SPENT: Approximately 45 minutes was spent on this admission, greater than half of that time spent [id number] with the patient obtaining my history, performing my physical exam, and reviewing my plan of care. This case has been reviewed with my attending, Dr. Katz, who is in agreement with the plan of care. ANA ROSA LOCKETT, GLENYS [id number]/CPS #: [id number] JOSE
[2018-08-22] MEDS: NS 0.9% 1000 ML** 1,000 ML IV SCH (04:53)
--- NOTE | 2018-08-22 08:27 | PN ---
Progress Note - Progress Note Date of Service: 08/22/18 SOAP: Subjective: Patient reports "8/10" pain. She states the pain feels her usual monthly menstrual cramping. No nausea now, but emesis O/N after eating tunafish sandwich. + void. + vaginal spotting. (last menses one week ago) Objective: Selected Entries 08/22/18 08/22/18 08/22/18 02:01 03:11 03:53 Temperature 98.0 F 98.3 F Temperature Oral Source Pulse Rate 64 63 Respiratory Rate Blood Pressure 135/73 121/68 (mmHg) Blood Pressure 88 80 Mean O2 Sat by Pulse 95 97 97 Oximetry 08/22/18 05:24 Temperature Temperature Source Pulse Rate Respiratory 19 Rate Blood Pressure (mmHg) Blood Pressure Mean O2 Sat by Pulse 95 Oximetry NAD, AAO x 3 Abdomen is soft Palpable uterine fundus is tender to palpation, but no rebound or guarding Radial pulse is 1+ Left hand is warm to touch Left hand sensation intact to light touch at radial, median and ulnar nerve distribution Left hand motor function is grossly intact <1cm of dry blood beneath tegaderm Assessment: 43 YOF POD #1 s/p Uterine Fibroid Arterial Embolization with pain at "menstrual cramp baseline" and nausea currently controlled. Plan: 1. Transition IV to PO meds. 2. Advance diet with breakfast tray. 3. Assisted ambulation around unit. 4. Discharge medications will be as follows: * [place] 5/325 tablets. Take 1 or 2 every 6 hours PRN for breakthrough pain x 5 days (Dispense #40) * Toradol 10 mg PO every 6 hours by mouth x 3 days (1 refill) * AFTER 3 DAYS OF TORADOL: Start Ibuprofen 400 mg PO every 6 hours for one week (This can titrated up to 800 mg PO every 6 hours if needed) * Scopolamine 1.5 mg TD: On 08/24/18 at 900 hours, remove current patch and replace with new one and wear x 3 days (1 refill) * Zofran 4 mg PO Q 6 hours x 7 days. * The patient is strongly encouraged to purchase laxative tea (for example, "Smooth Move") and drink one cup daily to avoid painful constipation.
[2018-08-22] MEDS ORDERED: Docusate CAP* 100 MG PO PRN (08:53)
[2018-08-22] MEDS ORDERED: HYDROcodone/ACETAMIN 5-325 MG* 1 TAB PO PRN (08:53)
--- NOTE | 2018-08-22 09:16 | PN ---
Subjective Date of Service: 08/22/18 Objective Active Medications: Hydrocodone Bitart/Acetaminophen ([place] 5-325 Tab*) 2 tab PO Q6H PRN PRN Reason: PAIN Docusate Sodium (Colace Cap*) 200 mg PO DAILY PRN PRN Reason: CONSTIPATION Enoxaparin Sodium (Lovenox(*)) 40 mg SUBCUT Q24H [facility] Last Admin: 08/21/18 20:44 Dose: 40 mg Ketorolac Tromethamine (Toradol Tab *) 10 mg PO Q6H [facility] Stop: 08/25/18 08:59 Naloxone HCl (Narcan*) 0.08 mg IV PUSH .Q2MIN PRN PRN Reason: OVERSEDATION Ondansetron HCl (Zofran Odt Tab*) 4 mg PO Q6H [facility] Stop: 08/29/18 08:59 Vital Signs - 8 hr 08/22/18 08/22/18 08/22/18 02:01 03:11 03:53 Temperature 98.0 F 98.3 F Pulse Rate 64 63 Respiratory 18 22 18 Rate Blood Pressure 135/73 121/68 (mmHg) O2 Sat by Pulse 95 97 97 Oximetry 08/22/18 08/22/18 03:59 05:24 Temperature Pulse Rate Respiratory 18 19 Rate Blood Pressure (mmHg) O2 Sat by Pulse 95 Oximetry Oxygen Devices in Use Now: None Assess/Plan/Problems-Billing Assessment:
[2018-08-22] MEDS: Ketorolac TAB * 10 MG TAB PO SCH ×2 (09:34→16:39)
[2018-08-22] MEDS: Ondansetron ODT TAB* 4 MG PO SCH ×2 (09:35→16:39)
[2018-08-22 14:06] VITALS: BP 127/64
--- NOTE | 2018-08-22 22:26 | DS ---
CC: Dr. Tc Spence; Dr. Remy Paiz; Dr. Jahaira Chavis * MEDICINE DISCHARGE SUMMARY: DATE OF ADMISSION: 08/21/18 DATE OF DISCHARGE: 08/22/18 PROVIDER: Kush Arriaza NP. ATTENDING PHYSICIAN: Dr. Caio Boyle * (dictated by Kush Arriaza NP) . INTERVENTION RADIOLOGIST: Dr. Tc Spence. PRIMARY CARE PROVIDER: Dr. Jahaira Chavis. PRIMARY CANDY ROLLING MACHINE OPERATOR: Dr. Remy Paiz. PRIMARY DISCHARGE DIAGNOSIS: Uterine fibroids, status post embolization. SECONDARY DISCHARGE DIAGNOSES: 1. Recurrent deep venous thrombosis. 2. Depression. HOSPITAL COURSE OF STAY: For full details, please refer to the H and P provided by Ana Rosa Lockett NP on 08/21/18. In summary, Ms. Cardenas is a 43-year- old female who was admitted on 08/21/18 for an elective uterine fibroid embolization with Dr. Spence. She does have a history of fibroids x10 years and has had significant pain, menstrual cramping and bleeding, and decreased quality of life. She underwent the embolization procedure and was noted to have significant fibroids of the uterus. She tolerated that procedure well and was observed overnight with appropriate pain control and antiemetics. The following day, she did continue to endorse pain, but has been improved with the recommended protocol and medications and she was able to demonstrate appropriate ambulation and tolerate food prior to discharge. She was seen and followed by Dr. Spence and will follow up with Dr. Spence as directed. In regards to her history of recurrent deep vein thrombosis, she reports that she does follow with a cuff matcher. She is no longer on anticoagulation, although she did receive Lovenox here in the hospital. She is to follow up with her primary care provider and Hematology regarding continuation of any anticoagulation, but is encouraged to ambulate and receive appropriate followup as previously indicated. PHYSICAL EXAMINATION: General: This is a well-developed, well-nourished, - [place] female, seen lying in bed in no acute distress. She appears her stated age. Vital signs: Temperature 98.7, pulse rate 72, respiratory rate 16, blood pressure 127/64, and O2 saturation is 100% on room air. HEENT: Head is atraumatic, normocephalic. Pupils are equal and round. Extraocular movements are intact. Oral mucosa is moist. Neck is supple with full range of motion. No JVD noted. Respiratory: Lungs are clear to auscultation anteriorly and posteriorly without rales, rhonchi or wheezing. Cardiovascular: Regular rate and rhythm with normal S1 and S2 heart sounds. No murmurs appreciated. There was no peripheral edema. Abdomen is soft, mildly tender to palpation postoperatively. Extremities are without clubbing or cyanosis. Pedal pulses are 2+ bilaterally. There is full range of motion throughout all 4 extremities. Neurologic: She is alert and oriented x4. Cranial nerves II through XII are grossly intact. Speech is clear. Skin: There is a left radial access site with a clear dressing. There is evidence of bleeding underneath. This is stable and the dressing is clean, dry and intact. OUTPATIENT FOLLOWUP NEEDS: She is to follow up with her primary care provider over the next two weeks. She has been instructed as to home care for radial puncture site and management of symptoms. She will follow up with Dr. Spence as directed, which is approximately 6 weeks from the day of her embolization. She has been given instructions as to her medication regimen, which will include [place], Toradol, ibuprofen following the completion of Toradol, scopolamine and Zofran. These prescriptions were ordered through the [facility] and delivered to the patient prior to discharge. DIET: Regular diet. ACTIVITY: As tolerated. CONDITION: Stable. DISPOSITION: To home. TIME SPENT: Approximately 40 minutes. Again, this is only a brief summary of the patient's hospital course of stay. For full details, please refer to the full medical record. If there are any further questions or need further assistance, please feel free to contact me at [phone]. KUSH ARRIAZA NP [id number]/CPS #: [id number] JOSE
== END 2018-08-22 15:15 | disposition home or self-care (01) ==
LOC: CHICATH 10:32 → SSU 19:54
PROVIDERS: ADMIT Internal Medicine; ATTEND Student in an Organized Health Care Education/Training Program
DX: N92.4 Excessive bleeding in the premenopausal period (principal); D25.9 Leiomyoma of uterus, unspecified; I82.409 Acute embolism and thrombosis of unspecified deep veins of unspecified lower extremity; F32.9 Major depressive disorder, single episode, unspecified; Z88.0 Allergy status to penicillin; F17.210 Nicotine dependence, cigarettes, uncomplicated
CPT/HCPCS: 37243; 75736; 76937; 96374; 96375; 96376; 99156; 99157; A9270-GY; C1769; C1884; C1887; G0378; J1170; J1644; J1650; J1885; J2250; J2310; J2405; J3010